=== PATIENT | female | born 1940 | race Caucasian/White ===

== ENCOUNTER → 2023-01-31 13:08 | Outpatient (CLI) | payer MEDICARE, SELFPAY ==
--- NOTE | ~2023-01-31 | XR_ITS ---
Left Shoulder Technique: AP and axillary views were obtained. Clinical History: Pain Findings: No fracture or dislocation is seen. There is severe glenohumeral joint osteoarthritis, with large inferomedial humeral head osteophyte and glenohumeral joint space narrowing. There is mild AC joint degenerative change. Soft tissues are unremarkable. Impression: Severe glenohumeral joint osteoarthritis. Mild degenerative change of the AC joint. Reviewed, dictated and finalized at location M[facility] Impression: Severe glenohumeral joint osteoarthritis. Mild degenerative change of the AC joint.
== END ==
PROVIDERS: PCP Physician Assistant Medical; Visit Provider Physician Assistant Medical
DX: M19.012 Primary osteoarthritis, left shoulder (principal); M24.112 Other articular cartilage disorders, left shoulder; G89.29 Other chronic pain
CPT/HCPCS: 73030